=== PATIENT | female | born 1950 | race Caucasian/White ===

== ENCOUNTER 2017-12-09 18:11 | Inpatient (IN) ==
[2017-12-09 18:34] LABS: Bilirubin,Urine Negative (Negative); Blood,Urine Trace (Negative); Clarity,Urine Clear (Clear); Color,Urine Yellow (Yellow); Glucose,Urine (UA) Normal (Normal); Ketones,Urine Negative (Negative); Leukocyte Esterase,Urine Negative (Negative); Nitrite,Urine Negative (Negative); Protein,Urine Negative (Neg-Trace); Specific Gravity,Urine 1.012 (1.010-1.025); Urobilinogen,Urine Normal (Normal)
[2017-12-09 18:48] LABS: Bacteria,Urine Few per hpf (None-Few); Hyaline Casts,Urine None Seen per lpf (None-Few); RBC,Urine 0-3 per hpf (0-3); Squamous Epithelial Cell,Urine Few per lpf (None-Few); WBC,Urine 0-3 per hpf (0-3); Yeast,Urine Few per hpf (None Seen)
[2017-12-09 18:55] LABS: Hematocrit 43.4 % (35.3-44.9); Hemoglobin 14.7 g/dL (11.5-15.4); Mean Corpuscular HGB Conc 33.9 g/dL (31.6-35.5); Mean Corpuscular Hemoglobin 29.9 pg (28.0-33.3); Mean Corpuscular Volume 88.4 fL (83.0-100.0); Mean Platelet Volume 10.6 fL (9.4-12.4); Platelet Count 322 K/mcL (140-400); Red Blood Count 4.91 M/mcL (3.82-4.97); Red Cell Distribution Width 13.2 % (11.5-14.5); Segmented Neutrophils % 78.3 %
[2017-12-09 18:56] LABS: Basophils # 0.1 K/mcL (0.0-0.2); Basophils % 0.3 %; Eosinophils # 0.2 K/mcL (0.0-0.6); Immature Granulocytes % 0.4 % (0-4); Lymphocytes # 2.4 K/mcL (0.6-4.6); Lymphocytes % 14.6 %; Monocytes # 0.9 K/mcL (0.0-1.3); Monocytes % 5.4 %; Neutrophils # 12.9 K/mcL (1.6-8.9)
[2017-12-09 19:14] LABS: Alanine Aminotransferase 14 Units/L (7-52); Albumin 4.2 g/dL (3.5-5.7); Albumin/Globulin Ratio 1.5 (1.1-2.2); Alkaline Phosphatase 115 Units/L (34-104); Amylase 69 Units/L (29-103); Aspartate Amino Transferase 11 Units/L (13-39); BUN/Creatinine Ratio 16 (6-26); Bilirubin,Total 0.4 mg/dL (0.3-1.0); Blood Urea Nitrogen 12 mg/dL (8-23); Calcium 9.6 mg/dL (8.6-10.3); Carbon Dioxide 27 mEq/L (23-29); Chloride 101 mEq/L (98-107); Globulin 2.8 g/dL (2.4-3.5); Glucose 154 mg/dL (70-105); Lipase 100 Units/L (11-82); Osmolality,Calculated 287 (280-300); Potassium 3.8 mEq/L (3.5-5.1); Sodium 137 mEq/L (136-145); eGFR For African Americans > 60 (> 60); eGFR For Non-African Americans > 60 (> 60)
--- NOTE | 2017-12-09 21:04 | Emergency Department Note ---
Disposition Clinical Impression: Diverticulitis Disposition: Admitted As Inpatient Condition: Good Referrals: Lanie Jones DO [Primary Care Provider] - Forms: ED Satisfaction Letter, Work/School Release Time of Disposition: 00:33 Abdominal Pain HPI - General Chief Complaint: ED Abdominal Pain Stated Complaint: L flank pain Time Seen by Provider: 12/09/17 20:03 Source: patient Mode of arrival: ambulatory Limitations: no limitations Nursing Notes Reviewed: Yes Vital Signs Reviewed: Yes - History of Present Illness HPI Narrative: Patient is a 67-year-old female with past medical history of diverticulitis. She was recently diagnosed with diverticulitis in July. Since then, she has been on 3 rounds of Cipro and Flagyl. She presents today due to left upper and left lower quadrant pain. She states that in previous episodes of diverticulitis, she has had right-sided pain. Denies any other nausea, vomiting , fevers, diarrhea, blood in the stool, chest pain, shortness of breath. She does admit to occasional chills. She said that she just finished her most recent round of Cipro and Flagyl approximately 5 days ago. She has not had any significant improvement in her symptoms while on antibiotics. Denies any other history of kidney stones, any dysuria, hematuria. She was seen here by outside facility for concern for CT abdomen and pelvis. Pain Scale: 10 - Related Data Previous Rx's Medication Instructions Recorded Ciprofloxacin [Cipro] 500 mg PO BID #20 tablet 09/11/17 HYDROcodone/Acet 5/325 mg [[place] 1 tab PO Q6H PRN #20 tab 09/11/17 5-325 mg] Ondansetron ODT [Zofran ODT] 4 mg SL Q8HR PRN #30 tab.rapdis 09/11/17 metroNIDAZOLE [Flagyl] 500 mg PO TID #30 tablet 09/11/17 Allergies Allergy/AdvReac Type Severity Reaction Status Date / Time adhesive tape Allergy Rash Verified 12/09/17 18:18 Iodinated Contrast- Oral and Allergy Hives Verified 12/09/17 18:18 IV Dye lidocaine Allergy Swelling Verified 12/09/17 18:18 of Lip/Tongue/Throat shellfish derived Allergy Hives Verified 12/09/17 18:18 [place] Allergy Hives Verified 12/09/17 18:18 Sulfa (Sulfonamide Allergy Hives Verified 12/09/17 18:18 Antibiotics) [email or web address] Allergy See Uncoded 12/09/17 18:18 Comments All systems ED: reviewed and negative except as stated. Constitutional: Denies: fever Cardiovascular: Denies: chest pain Respiratory: Denies: cough, dyspnea, wheezes Gastrointestinal: Reports: abdominal pain. Denies: nausea, vomiting, diarrhea, constipation Genitourinary: Denies: urgency, dysuria, frequency, hematuria Integumentary: Denies: rash Neurological: Denies: headache, weakness, numbness, paresthesias Abdominal Pain PMH - Past Medical History Medical history: Reports: arthritis, cancer Female Surgical History: Reports: appendectomy Psychiatric history: Reports: no psych history - Social History Smoking status: Never smoker Alcohol use: Reports: none Drug use: Reports: none Physical Exam - General Limitations: no limitations General appearance: alert - Head Head exam: atraumatic, normocephalic, normal inspection - Eye Eye exam: Present: normal appearance, PERRL, EOMI - ENT ENT exam: normal exam, normal oropharynx, mucous membranes moist - Neck Neck exam: Present: normal inspection, full ROM, trachea midline - Chest Chest inspection: Present: normal inspection, symmetric chest wall rise - Respiratory Respiratory exam: Present: normal lung sounds bilaterally - Cardiovascular Cardiovascular exam: Present: regular rate, normal rhythm, normal heart sounds - Abdominal Exam Abdominal exam: Present: soft, tenderness (Left upper and left lower quadrant, moderate in intensity). Absent: guarding, rebound, rigidity, Mays's sign, Rovsing's sign, tenderness at McBurney's Point - Extremities Exam Extremities exam: Present: normal inspection, full ROM. Absent: tenderness, pedal edema - Neurological Exam Neurological exam: Present: alert, oriented X3 - Psychiatric Psychiatric exam: Present: normal affect, normal mood - Skin Skin exam: Present: warm, dry, intact, normal color Course Course Narrative: Patient was tachycardic, afebrile. The rest of the vitals within normal limits. Physical exam showed left upper and left lower quadrant tenderness. Patient has had an appendectomy in the past. Currently failing outpatient treatment for presumed diverticulitis. Basic labs show elevation in white blood cell count of 16.5. Urinalysis shows trace blood but no signs of UTI. We will obtain CT abdomen and pelvis without contrast to assess for diverticulitis versus less likely kidney stone. We will also give 1 L normal saline bolus for tachycardia. Patient will likely require IV antibiotics if this is in fact diverticulitis due to failing outpatient treatment. 00:32 CT abdomen and pelvis shows diverticulitis of the descending colon. Patient was started on IV Zosyn since patient has artery failed outpatient treatment on Cipro and Flagyl. Patient admitted to hospitalist for further care. Heart rate is improving after fluids. Abdomen/Pelvis CT 12/09/17 21:12 IMPRESSION: Diverticulitis of the descending colon. D/ / Stevie Carrillo MD / Stevie Carrillo MD Interpreting Provider: Stevie Carrillo MD Vital Signs Temperature 99.1 F 12/09/17 18:18 Pulse Rate 120 12/09/17 18:18 Respiratory Rate 20 12/09/17 18:18 Blood Pressure 147/79 12/09/17 18:18 O2 Sat by Pulse Oximetry 97 12/09/17 18:18 Temperature 99.1 F 12/09/17 18:18 Pulse Rate 98 12/09/17 21:43 Respiratory Rate 18 12/09/17 21:43 Blood Pressure 131/71 12/09/17 21:43 O2 Sat by Pulse Oximetry 95 12/09/17 21:43 Oxygen Delivery Oxygen Delivery Room Air Abdominal Pain - MDM Narrative Medical decision making narrative: Patient was tachycardic, afebrile. The rest of the vitals within normal limits. Physical exam showed left upper and left lower quadrant tenderness. Patient has had an appendectomy in the past. Currently failing outpatient treatment for presumed diverticulitis. Basic labs show elevation in white blood cell count of 16.5. Urinalysis shows trace blood but no signs of UTI. We will obtain CT abdomen and pelvis without contrast to assess for diverticulitis versus less likely kidney stone. We will also give 1 L normal saline bolus for tachycardia. Patient will likely require IV antibiotics if this is in fact diverticulitis due to failing outpatient treatment. 00:32 CT abdomen and pelvis shows diverticulitis of the descending colon. Patient was started on IV Zosyn since patient has artery failed outpatient treatment on Cipro and Flagyl. Patient admitted to hospitalist for further care. Heart rate is improving after fluids. - Medical Records Medical records reviewed: Yes I reviewed the patient's medical records. - Lab Data Lab results reviewed: Yes I reviewed the patient's lab results. Result diagrams: 12/09/17 18:36 12/09/17 18:36 Lab Results 12/09/17 12/09/17 12/09/17 Range/Units 18:21 18:36 18:36 WBC 16.5 H (4.3-11.1) K/mcL RBC 4.91 (3.82-4.97) M/mcL Hgb 14.7 (11.5-15.4) g/dL Hct 43.4 (35.3-44.9) % MCV 88.4 (83.0-100.0) fL MCH 29.9 (28.0-33.3) pg MCHC 33.9 (31.6-35.5) g/dL RDW 13.2 (11.5-14.5) % Plt Count 322 (140-400) K/mcL MPV 10.6 (9.4-12.4) fL Immature Gran % 0.4 (0-4) % Seg Neutrophils % 78.3 % Lymphocytes % 14.6 % Monocytes % 5.4 % Eosinophils % 1.0 % Basophils % 0.3 % Neutrophils # 12.9 H (1.6-8.9) K/mcL Lymphocytes # 2.4 (0.6-4.6) K/mcL Monocytes # 0.9 (0.0-1.3) K/mcL Eosinophils # 0.2 (0.0-0.6) K/mcL Basophils # 0.1 (0.0-0.2) K/mcL Sodium 137 (136-145) mEq/L Potassium 3.8 (3.5-5.1) mEq/L Chloride 101 (98-107) mEq/L Carbon Dioxide 27 (23-29) mEq/L BUN 12 (8-23) mg/dL Creatinine 0.75 (0.60-1.20) mg/dL Est GFR ( Amer) > 60 (> 60) Est GFR (Non-Af Amer) > 60 (> 60) BUN/Creatinine Ratio 16 (6-26) Glucose 154 H (70-105) mg/dL Calculated Osmolality 287 (280-300) Calcium 9.6 (8.6-10.3) mg/dL Total Bilirubin 0.4 (0.3-1.0) mg/dL AST 11 L (13-39) Units/L ALT 14 (7-52) Units/L Alkaline Phosphatase 115 H (34-104) Units/L Serum Total Protein 7.0 (6.4-8.9) g/dL Albumin 4.2 (3.5-5.7) g/dL Globulin 2.8 (2.4-3.5) g/dL Albumin/Globulin Ratio 1.5 (1.1-2.2) Amylase 69 (29-103) Units/L Lipase 100 H (11-82) Units/L Ur Specimen Adequacy See below A Urine Color Yellow (Yellow) Urine Clarity Clear (Clear) Urine pH 6.0 (5.0-8.0) pH Units Ur Specific [place] 1.012 (1.010-1.025) Urine Protein Negative (Neg-Trace) mg/dL Urine Glucose (UA) Normal (Normal) mg/dL Urine Ketones Negative (Negative) mg/dL Urine Blood Trace H (Negative) Urine Nitrite Negative (Negative) Urine Bilirubin Negative (Negative) Urine Urobilinogen Normal (Normal) mg/dL Ur Leukocyte Esterase Negative (Negative) Urine Microscopic RBC 0-3 (0-3) per hpf Urine Microscopic WBC 0-3 (0-3) per hpf Ur Squamous Epith Cells Few (None-Few) per lpf Urine Bacteria Few (None-Few) per hpf Hyaline Casts None Seen (None-Few) per lpf Urine Yeast Few H (None Seen) per hpf Ur Culture Indicated? NO (NO) - Radiology Data Radiology results reviewed: Yes I reviewed the patient's radiology results. Abdomen/Pelvis CT 12/09/17 21:12 IMPRESSION: Diverticulitis of the descending colon. D/ / Stevie Carrillo MD / Stevie Carrillo MD Interpreting Provider: Stevie Carrillo MD S.B.A.R. - S.B.A.R. Situation: Demographics, MOA Background: Presenting Complaint, Relevant PMH, Meds, & Allergies Assessment: Vital Signs, Course and respsone to treatment, Exam Concerns, Patient/Family Expectation, Pertinant Lab Results Recommendation: Barrier(s) to disposition, Recommendation based on pending studies, treatments, or consults S.B.A.R. Report Given to: Dr. Osuna
[2017-12-09] MEDS ORDERED: 0.9 % Sodium Chloride 1,000 ML IVC ONE (21:14)
[2017-12-09] MEDS ORDERED: Piperacillin/Tazobactam 3.375 GM in 0.9 % Sodium Chloride Mini Bag 100 ML IVPB ONE (23:59)
[2017-12-10] MEDS ORDERED: OXYCODONE Oral CONC 10 MG/0.5 ML ORAL.SYG SL ONE (02:55)
[2017-12-10] MEDS ORDERED: Ondansetron 4 MG/2 ML VIAL IVP PRN (05:27)
[2017-12-10] MEDS ORDERED: Naloxone 0.4 MG/ML INJ IVP PRN ×2 (05:27)
[2017-12-10] MEDS ORDERED: OXYCODONE Oral CONC 10 MG/0.5 ML ORAL.SYG SL PRN ×2 (05:27)
[2017-12-10] MEDS: *HR* Heparin 5,000 UNIT/ML VIAL SQ SCH ×2 (05:53→16:07)
[2017-12-10] MEDS: 0.9 % Sodium Chloride 1,000 ML IVC SCH ×2 (05:54→14:20)
--- NOTE | 2017-12-10 06:57 | Internal Med History&Physical ---
Date of Encounter: 12/10/17 Time of Encounter: 04:00 Internal Medicine - H&P: HPI Chief complaint: Left lower quadrant pain Admitted From: Home Plans for Post Hospital Care: Home History of present illness: Ms. Espinosa is a 67 year old female present to ER for left lower quadrant abdominal pain for 3 days. Past medical history is significant for history of diverticulitis, leg carcinoma. Patient said she she started to have abdominal pain since 3 days ago, pain is a sharp, 7 out of 10, worsening on movement. Patient denies fever, nausea, vomiting, diarrhea. In the emergency room, CT abdomen shows diverticulitis, without perforation or abscess. Patient was admitted acute diverticulitis. Past Med Surg Social Fam HX - Past Medical History Medical history: arthritis, cancer Psychiatric history: no psych history - Past Surgical History Surgical History: appendectomy - Social History Smoking Status: Never smoker Smokeless Tobacco Status: No Alcohol use: none Drug use: none - Family History Mother Name: Eliz Sims Living Status: Age at : 83 Cause of : CHF Hx Family Cardiac Disorders: Yes Father Name: Kelechi Sism Living Status: Age at : 84 Cause of : cancer Hx Family Cancer: Yes (liver) Internal Medicine - H&P: Meds Furosemide [Lasix] 20 mg PO PRN PRN 12/10/17 [History] 3 Allergy/AdvReac Type Severity Reaction Status Date / Time adhesive tape Allergy Rash Verified 12/09/17 18:18 Iodinated Contrast- Oral and Allergy Hives Verified 12/09/17 18:18 IV Dye lidocaine Allergy Swelling Verified 12/09/17 18:18 of Lip/Tongue/Throat shellfish derived Allergy Hives Verified 12/09/17 18:18 [place] Allergy Hives Verified 12/09/17 18:18 Sulfa (Sulfonamide Allergy Hives Verified 12/09/17 18:18 Antibiotics) [email or web address] Allergy See Uncoded 12/09/17 18:18 Comments All Systems PM: A 10-system review of systems was performed and is negative for pertinent findings except as documented above in the HPI. - Constitutional Vitals: Temp Pulse Resp BP Pulse Ox 98.0 F 101 16 132/74 98 12/10/17 01:47 12/10/17 01:47 12/10/17 01:47 12/10/17 01:47 12/10/17 01:47 General appearance: Present: A&O X 3, no acute distress, answers questions appropriately - Head Head exam: Present: atraumatic, normocephalic - Eye Eye exam: Present: PERRL, conjuntiva pink, sclera anicteric Pupils: Present: PERRL - Neck Neck exam general surgery: Present: supple, trachea midline. Absent: lymphadenopathy - Respiratory Respiratory exam: Present: CTAB. Absent: accessory muscle use, rales, rhonchi, wheezes - Cardiovascular Cardiovascular exam: Present: RRR, +S1, +S2. Absent: diastolic murmur, gallop, rubs, systolic murmur - GI/Abdominal GI/Abdominal exam: Present: normal bowel sounds, soft, tenderness (Left lower qudrant tenderness, without rebound or guarding), no peritoneal signs. Absent: distended - Extremities Exam Extremities exam: Present: warm, radial pulses palpable and symmetrical. Absent : calf tenderness, cyanotic, pedal edema - Neurological Exam Neurological exam: Present: CN II-XII intact, oriented X3, no focal deficits. Absent: pronater drift, facial droop, speech deficit - Skin Skin exam: Present: dry, intact Internal Med - H&P Results - Labs CBC & Chem 7: 12/09/17 18:36 12/09/17 18:36 - Assessment and plan (1) Diverticulitis Current Visit: Yes Status: Acute Assessment and plan: Patient has abdominal pain. History of diverticulitis. CT abdomen shows diverticulitis. Consider acute diverticulitis. - Keep patient nothing by mouth, IV fluid - Pain medication for pain control - Zosyn IV for diverticulitis (2) DVT prophylaxis Current Visit: Yes Status: Acute Assessment and plan: Heparin subcutaneously - Time Spent With Patient Total time spent is greater than 50% in coordination of care (as documented) at patient's floor/unit and/or counseling patient: 40 minutes Greater than 35 minutes
[2017-12-10] MEDS: Piperacillin/Tazobactam 3.375 GM in 0.9 % Sodium Chloride Mini Bag 100 ML IVPB SCH ×2 (08:38→16:08)
[2017-12-10 13:59] LABS: Hematocrit 41.5 % (35.3-44.9); Hemoglobin 13.6 g/dL (11.5-15.4); Mean Corpuscular HGB Conc 32.8 g/dL (31.6-35.5); Mean Corpuscular Volume 91.6 fL (83.0-100.0); Mean Platelet Volume 10.5 fL (9.4-12.4); Platelet Count 279 K/mcL (140-400); Red Blood Count 4.53 M/mcL (3.82-4.97); Red Cell Distribution Width 13.3 % (11.5-14.5)
[2017-12-10 14:18] LABS: BUN/Creatinine Ratio 14 (6-26); Blood Urea Nitrogen 9 mg/dL (8-23); Calcium 9.1 mg/dL (8.6-10.3); Carbon Dioxide 28 mEq/L (23-29); Chloride 104 mEq/L (98-107); Glucose 91 mg/dL (70-105); Osmolality,Calculated 282 (280-300); Potassium 3.7 mEq/L (3.5-5.1); Sodium 137 mEq/L (136-145); eGFR For African Americans > 60 (> 60); eGFR For Non-African Americans > 60 (> 60)
[2017-12-11] MEDS: Piperacillin/Tazobactam 3.375 GM in 0.9 % Sodium Chloride Mini Bag 100 ML IVPB SCH ×2 (00:39→08:14)
[2017-12-11 05:27] LABS: Basophils % 0.3 %; Eosinophils # 0.2 K/mcL (0.0-0.6); Eosinophils % 2.3 %; Hematocrit 37.7 % (35.3-44.9); Hemoglobin 12.3 g/dL (11.5-15.4); Immature Granulocytes % 0.3 % (0-4); Lymphocytes # 2.2 K/mcL (0.6-4.6); Lymphocytes % 23.7 %; Mean Corpuscular HGB Conc 32.6 g/dL (31.6-35.5); Mean Corpuscular Hemoglobin 29.5 pg (28.0-33.3); Mean Corpuscular Volume 90.4 fL (83.0-100.0); Mean Platelet Volume 10.7 fL (9.4-12.4); Monocytes # 0.7 K/mcL (0.0-1.3); Monocytes % 7.4 %; Neutrophils # 6.2 K/mcL (1.6-8.9); Platelet Count 245 K/mcL (140-400); Red Blood Count 4.17 M/mcL (3.82-4.97); Red Cell Distribution Width 13.3 % (11.5-14.5)
[2017-12-11] MEDS: *HR* Heparin 5,000 UNIT/ML VIAL SQ SCH (05:44)
[2017-12-11 05:46] LABS: BUN/Creatinine Ratio 12 (6-26); Blood Urea Nitrogen 8 mg/dL (8-23); Calcium 8.7 mg/dL (8.6-10.3); Carbon Dioxide 28 mEq/L (23-29); Chloride 106 mEq/L (98-107); Glucose 106 mg/dL (70-105); Magnesium 2.1 mg/dL (1.6-2.6); Osmolality,Calculated 287 (280-300); Potassium 3.6 mEq/L (3.5-5.1); Sodium 139 mEq/L (136-145); eGFR For African Americans > 60 (> 60); eGFR For Non-African Americans > 60 (> 60)
[2017-12-11 10:45] VITALS: BP 127/73
--- NOTE | 2017-12-11 11:33 | Discharge Summary ---
- NOTES TO OUTPATIENT PROVIDER Notes to Outpatient Provider: Recommend follow-up within 7-10 days Date of Encounter: 12/11/17 Time of Encounter: 11:23 - Discharge Diagnosis (1) Diverticulitis Priority: Primary Status: Acute Comments: presented to OSH with abdominal pain. ABD CT with diverticulitis in the descending colon. Afebrile, no elevated WBC. Symptoms improved with IV Zosyn. No abdominal pain and tolerating regular diet at time of discharge. Discharge home on PO Cipro, flagyl. Follow-up with PCP outpatient. Hospital course: See assessment and plan for hospital course Discharge discussed with: patient (Seen and examined at bedside, patient is new to me. Information obtained from chart review and patient report. She reports mild left upper quadrant pain but overall significantly improved. Tolerating regular diet. She is requesting to go home today. No diarrhea, no constipation.) - Time Spent with Patient Total time spent providing and/or coordinating discharge services: - Discharge Medications Prescriptions: Ciprofloxacin [Cipro] 500 mg PO BID #14 tablet metroNIDAZOLE [Flagyl] 500 mg PO TID #21 tablet Home Medications: Furosemide [Lasix] 20 mg PO DAILY PRN 12/10/17 [History] Ibuprofen [Motrin] 400 mg PO Q6HR PRN 12/10/17 [History] Lactobacillus Combination No.8 [Adult Probiotic] 1 cap PO QPM 12/10/17 [History] Ciprofloxacin [Cipro] 500 mg PO BID #14 tablet 12/11/17 [Rx] metroNIDAZOLE [Flagyl] 500 mg PO TID #21 tablet 12/11/17 [Rx] Allergies/Adverse Reactions: 3 Allergy/AdvReac Type Severity Reaction Status Date / Time adhesive tape Allergy Rash Verified 12/09/17 18:18 Iodinated Contrast- Oral and Allergy Hives Verified 12/09/17 18:18 IV Dye lidocaine Allergy Swelling Verified 12/09/17 18:18 of Lip/Tongue/Throat shellfish derived Allergy Hives Verified 12/09/17 18:18 [place] Allergy Hives Verified 12/09/17 18:18 Sulfa (Sulfonamide Allergy Hives Verified 12/09/17 18:18 Antibiotics) [email or web address] Allergy See Uncoded 12/09/17 18:18 Comments Date of admission: 12/10/17 05:27 Primary care physician: Markos Marrufo Discharging clinician: Jayashree Villalta Anticipated date of discharge: 12/11/17 - Constitutional Vitals: Temp Pulse Resp BP Pulse Ox 97.6 F 73 18 127/73 96 12/11/17 10:43 12/11/17 10:43 12/11/17 10:43 12/11/17 10:43 12/11/17 10:43 General appearance: Present: A&O X 3, morbidly obese, no acute distress, answers questions appropriately - Head Head exam: Present: atraumatic, normocephalic - Eye Eye exam: Present: PERRL, conjuntiva pink, sclera anicteric Pupils: Present: PERRL - Neck Neck exam general surgery: Present: supple, trachea midline. Absent: lymphadenopathy - Respiratory Respiratory exam: Present: CTAB. Absent: accessory muscle use, rales, rhonchi, wheezes - Cardiovascular Cardiovascular exam: Present: RRR, +S1, +S2. Absent: diastolic murmur, gallop, rubs, systolic murmur - GI/Abdominal GI/Abdominal exam: Present: normal bowel sounds, soft, no peritoneal signs. Absent: distended, tenderness - Extremities Exam Extremities exam: Present: warm, radial pulses palpable and symmetrical. Absent : calf tenderness, cyanotic, pedal edema - Neurological Exam Neurological exam: Present: CN II-XII intact, oriented X3, no focal deficits. Absent: pronater drift, facial droop, speech deficit - Skin Skin exam: Present: dry, intact - Patient Status Disposition: Home, Self-Care Condition: Good Functional capacity at discharge: independent ambulation Overall status at discharge: patient is back to baseline - Discharge Instructions Instructions: Diverticulitis (DC), Diverticulitis Diet (DC), Ciprofloxacin (By mouth), Metronidazole (By mouth) Follow Up With: Lanie Jones DO [Primary Care Provider] - - Diet and Activity Activity: increase activity as tolerated Diet: other (Please reference educational diverticulitis diet)
== END 2017-12-11 13:38 | disposition home or self-care (01) | DRG 392 ==
LOC: EMEROO 18:11 → 3BNU 18:11
PROVIDERS: ADMIT Internal Medicine; ATTEND Registered Nurse